=== PATIENT | female | born 1960 | race Caucasian/White ===

== ENCOUNTER 2016-10-21 14:29 | Emergency (ER) | payer OTHER, MEDICAID ==
[~2016-10-21] VITALS: Ht 160 cm; Wt 113.5 kg
[~2016-10-21 14:29] MED LIST: ASPIR 8181 MG PO; CELEBREX200 MG PO; CLINDAMYCIN HC300 MG PO; COLACE100 MG PO; CYMBALTA60 M1 PO; DETROL LA4 MG PO; DIOVAN80 MG PO; ENBREL50 MG/ML SC; FOLIC ACID1 MG PO; HORIZANT600 M1 PO; LAC PO; LEVOFLOXACIN500 M1 PO; LINZESS145 MC1 PO; METFORMIN HCL500 MG PO; METHOTREXATE2.5 M2 PO; OMEPRAZOLE20 M2 PO; PREDNISONE50 MG PO; SAVELLA50 M1 PO; SIMVASTATIN20 M1 PO; SPIRONOLACTONE25 MG PO
[2016-10-21 16:53] LABS: BASOPHIL % 1.9 % (0-2); PLATELET COUNT 281 x10^3mcL (130-400)
[2016-10-21 16:59] LABS: CHLORIDE SERUM 105 mmol/L (98-107); CREATININE SERUM 0.8 mg/dL (0.6-1.0); GFR1 > 60 mL/min; GLUCOSE SERUM 121 mg/dL (74-106); POTASSIUM SERUM 4.3 mmol/L (3.5-5.1); SODIUM SERUM 141 mmol/L (136-145)
[2016-10-21 17:02] LABS: RED CELL DISTRIBUTION WIDTH 17.8 % (11.5-14.5)
[2016-10-21 17:10] LABS: ALBUMIN 3.5 g/dL (3.4-5.0); ALKALINE PHOSPHATASE 98 U/L (46-116); ALT/SGPT 17 U/L (14-59); AST/SGOT 15 U/L (15-37); BILIRUBIN TOTAL 0.4 mg/dL (0.20-1.00); TOTAL PROTEIN, SERUM 7.4 g/dL (6.4-8.2)
[2016-10-21 17:15] LABS: UA SPECIFIC GRAVITY 1.015 (1.005-1.035); microscopic required? YES; urine erythrocyte NEGATIVE (NEGATIVE)
[2016-10-21 17:20] LABS: CK-MB < 0.5 ng/mL (0-3.6); CREATINE KINASE 85 U/L (26-192)
[2016-10-21 17:26] VITALS: BP 114/52
== END 2016-10-21 18:10 | disposition home or self-care (01) ==
LOC: ED 14:29
PROVIDERS: Emergency Medicine
DX: R53.1 Weakness (principal); R42 Dizziness and giddiness; E11.9 Type 2 diabetes mellitus without complications; I10 Essential (primary) hypertension; M06.9 Rheumatoid arthritis, unspecified; Z79.84 Long term (current) use of oral hypoglycemic drugs; Z79.1 Long term (current) use of non-steroidal anti-inflammatories (NSAID); Z79.899 Other long term (current) drug therapy
CPT/HCPCS: 82962; 83880; J7050; Q0092

== ENCOUNTER 2018-01-12 12:11 | Emergency (ER) | payer OTHER, MEDICAID ==
[~2018-01-12] VITALS: Ht 165.1 cm; Wt 118.8 kg
[2018-01-12 12:37] VITALS: Ht 165.1 cm; Wt 118.8 kg
[2018-01-12 13:27] LABS: BASOPHIL % 0.4 % (0-2); PLATELET COUNT 310 x10^3mcL (130-400); RED CELL DISTRIBUTION WIDTH 21.1 % (11.5-14.5)
[2018-01-12 13:47] LABS: CK-MB < 0.5 ng/mL (0-3.6); CREATINE KINASE 45 U/L (26-192)
[2018-01-12 14:04] LABS: ALBUMIN 3.2 g/dL (3.4-5.0); ALKALINE PHOSPHATASE 107 U/L (46-116); ALT/SGPT 18 U/L (14-59); AST/SGOT 18 U/L (15-37); BILIRUBIN TOTAL 0.32 mg/dL (0.20-1.00); CALCIUM 8.8 mg/dL (8.5-10.1); CARBON DIOXIDE 27.8 mmol/L (21-32); CHLORIDE SERUM 102 mmol/L (98-107); CREATININE SERUM 0.8 mg/dL (0.6-1.0); GFR1 > 60 mL/min; GLUCOSE SERUM 101 mg/dL (74-106); POTASSIUM SERUM 3.9 mmol/L (3.5-5.1); SODIUM SERUM 139 mmol/L (136-145); TOTAL PROTEIN, SERUM 7.1 g/dL (6.4-8.2)
[2018-01-12 14:51] VITALS: BP 150/66
== END 2018-01-12 14:51 | disposition home or self-care (01) ==
LOC: ED 12:11
PROVIDERS: Emergency Medicine
DX: R53.1 Weakness (principal); I10 Essential (primary) hypertension; E11.9 Type 2 diabetes mellitus without complications; N28.9 Disorder of kidney and ureter, unspecified; M06.9 Rheumatoid arthritis, unspecified; M54.9 Dorsalgia, unspecified
CPT/HCPCS: 36415; 83880; Q0092

== ENCOUNTER 2018-01-16 16:28 | Inpatient (IN) | payer OTHER, MEDICAID ==
[~2018-01-16] VITALS: Ht 162.6 cm; Wt 119.8 kg
[2018-01-16 18:39] LABS: BASOPHIL % 0.4 % (0-2); PLATELET COUNT 400 x10^3mcL (130-400)
[2018-01-16 18:41] LABS: CALCIUM 9.1 mg/dL (8.5-10.1); CARBON DIOXIDE 25.3 mmol/L (21-32); CHLORIDE SERUM 100 mmol/L (98-107); CREATININE SERUM 0.9 mg/dL (0.6-1.0); GFR1 > 60 mL/min; GLUCOSE SERUM 169 mg/dL (74-106); POTASSIUM SERUM 3.5 mmol/L (3.5-5.1); SODIUM SERUM 139 mmol/L (136-145)
[2018-01-16 18:45] LABS: ALBUMIN 4.2 g/dL (3.4-5.0); ALKALINE PHOSPHATASE 129 U/L (46-116); ALT/SGPT 18 U/L (14-59); AST/SGOT 38 U/L (15-37); BILIRUBIN TOTAL 0.6 mg/dL (0.20-1.00); LIPASE 103 IU/L (73-393)
[2018-01-16 18:47] LABS: TOTAL PROTEIN, SERUM 8.9 g/dL (6.4-8.2)
[2018-01-16 19:02] LABS: RED CELL DISTRIBUTION WIDTH 21.5 % (11.5-14.5)
[2018-01-16 22:47] VITALS: BP 127/77
[2018-01-16 22:57] VITALS: Ht 162.6 cm; Wt 119.8 kg
[2018-01-16 23:18] LABS: CHOLESTEROL/HDL RATIO 4.5; PHOSPHOROUS 4.4 mg/dL (2.5-4.9)
[2018-01-16 23:24] LABS: FREE T4 1.08 ng/dL (0.76-1.46); FREE THYROXINE INDEX 3.3 ug/dL (1.4-4.5); T4(THYROXINE) 10.5 ug/dL (4.7-13.3)
[2018-01-17 00:31] LABS: T3 TOTAL 1.46 ng/mL
[2018-01-17 06:28] VITALS: BP 101/44
[2018-01-17 07:45] LABS: PLATELET COUNT 285 x10^3mcL (130-400)
[2018-01-17 07:46] LABS: BASOPHIL % 0 % (0-2)
[2018-01-17 07:47] LABS: rbc morphology (normal/abnorm) ABNORMAL (NORMAL)
[2018-01-17 08:11] LABS: CARBON DIOXIDE 24.7 mmol/L (21-32); CHLORIDE SERUM 107 mmol/L (98-107); CREATININE SERUM 0.8 mg/dL (0.6-1.0); GFR1 > 60 mL/min; GLUCOSE SERUM 119 mg/dL (74-106); MAGNESIUM 1.6 mg/dL (1.8-2.4); PHOSPHOROUS 2.9 mg/dL (2.5-4.9); POTASSIUM SERUM 4.2 mmol/L (3.5-5.1); SODIUM SERUM 141 mmol/L (136-145); TRIGLYCERIDES 131 mg/dL (<150)
[2018-01-17 08:33] LABS: CHOLESTEROL 115 mg/dL (<200); CHOLESTEROL/HDL RATIO 3.8; HDL CHOLESTEROL 30 mg/dL (40-60)
[2018-01-17 15:31] VITALS: BP 95/54
[2018-01-17 17:29] VITALS: BP 106/36
[2018-01-17 18:33] LABS: UA SPECIFIC GRAVITY >=1.030 (1.005-1.035); microscopic required? YES; urine erythrocyte NEGATIVE (NEGATIVE)
[2018-01-17 18:40] LABS: AMPHETAMINE QUAL UR NONE DETECTED (See below)
[2018-01-17 19:03] VITALS: BP 118/45
[2018-01-17 21:20] VITALS: BP 106/36
[2018-01-18 05:11] VITALS: BP 111/43
[2018-01-18 07:47] LABS: BASOPHIL % 0.3 % (0-2); PLATELET COUNT 246 x10^3mcL (130-400)
[2018-01-18 07:48] LABS: RED CELL DISTRIBUTION WIDTH 21.2 % (11.5-14.5)
[2018-01-18 07:49] LABS: rbc morphology (normal/abnorm) ABNORMAL (NORMAL)
[2018-01-18 07:55] LABS: CARBON DIOXIDE 25.6 mmol/L (21-32); CHLORIDE SERUM 107 mmol/L (98-107); CREATININE SERUM 0.6 mg/dL (0.6-1.0); GFR1 > 60 mL/min; GLUCOSE SERUM 144 mg/dL (74-106); MAGNESIUM 1.7 mg/dL (1.8-2.4); PHOSPHOROUS 2.5 mg/dL (2.5-4.9); POTASSIUM SERUM 3.5 mmol/L (3.5-5.1); SODIUM SERUM 140 mmol/L (136-145)
[2018-01-18 09:50] VITALS: BP 116/51
[2018-01-18 15:23] VITALS: BP 130/46
[2018-01-18 18:26] VITALS: BP 114/43
[2018-01-18 20:59] VITALS: BP 132/59
[2018-01-19 05:33] VITALS: BP 113/45
[2018-01-19 07:23] LABS: BASOPHIL % 0.2 % (0-2); CALCIUM 7.8 mg/dL (8.5-10.1); CARBON DIOXIDE 27.9 mmol/L (21-32); CHLORIDE SERUM 108 mmol/L (98-107); CREATININE SERUM 0.6 mg/dL (0.6-1.0); GFR1 > 60 mL/min; GLUCOSE SERUM 123 mg/dL (74-106); MAGNESIUM 1.6 mg/dL (1.8-2.4); PHOSPHOROUS 3.2 mg/dL (2.5-4.9); PLATELET COUNT 257 x10^3mcL (130-400); POTASSIUM SERUM 3.4 mmol/L (3.5-5.1); SODIUM SERUM 142 mmol/L (136-145)
[2018-01-19 07:26] LABS: RED CELL DISTRIBUTION WIDTH 21.6 % (11.5-14.5)
[2018-01-19 07:27] LABS: rbc morphology (normal/abnorm) ABNORMAL (NORMAL)
[2018-01-19 10:19] VITALS: BP 133/56
[2018-01-19 12:44] VITALS: BP 125/55
[2018-01-19 17:31] VITALS: BP 127/52
[2018-01-19 20:42] VITALS: BP 118/51
[2018-01-20 05:27] VITALS: BP 102/50
[2018-01-20 06:09] LABS: PLATELET COUNT 280 x10^3mcL (130-400)
[2018-01-20 06:27] LABS: BASOPHIL % 0 % (0-2); RED CELL DISTRIBUTION WIDTH 21.3 % (11.5-14.5)
[2018-01-20 06:38] LABS: CALCIUM 8.3 mg/dL (8.5-10.1); CARBON DIOXIDE 25.7 mmol/L (21-32); CHLORIDE SERUM 106 mmol/L (98-107); CREATININE SERUM 0.8 mg/dL (0.6-1.0); GFR1 > 60 mL/min; GLUCOSE SERUM 111 mg/dL (74-106); MAGNESIUM 1.4 mg/dL (1.8-2.4); PHOSPHOROUS 2.1 mg/dL (2.5-4.9); POTASSIUM SERUM 3.9 mmol/L (3.5-5.1); SODIUM SERUM 138 mmol/L (136-145)
[2018-01-20 09:53] VITALS: BP 125/52
[2018-01-20] MEDS ORDERED: NOVAPLUS ZYVO2 MG/ML IV (13:59)
[2018-01-20 14:06] VITALS: BP 125/56
[2018-01-20] MEDS ORDERED: LIPI20 PO (14:45)
[2018-01-20 14:49] VITALS: BP 125/56
[2018-01-20 17:21] VITALS: BP 126/48
== END 2018-01-20 18:11 | disposition home health service (06) | DRG 357 ==
LOC: ED 16:28 → MU 21:30 → DU 21:30 → MU 22:20 → DU 22:49
PROVIDERS: Emergency Medicine; Internal Medicine
PROC: 0JBR0ZZ Excision of Left Foot Subcutaneous Tissue and Fascia, Open Approach (ICD-10-PCS; principal; 2018-01-17)
PROC: 0JBQ0ZZ Excision of Right Foot Subcutaneous Tissue and Fascia, Open Approach (ICD-10-PCS; 2018-01-17)
DX: K56.7 Ileus, unspecified (principal); L97.421 Non-pressure chronic ulcer of left heel and midfoot limited to breakdown of skin; Z68.42 Body mass index [BMI] 45.0-49.9, adult; L97.511 Non-pressure chronic ulcer of other part of right foot limited to breakdown of skin; E11.621 Type 2 diabetes mellitus with foot ulcer; E11.40 Type 2 diabetes mellitus with diabetic neuropathy, unspecified; K59.03 Drug induced constipation; T50.7X5A Adverse effect of analeptics and opioid receptor antagonists, initial encounter; G89.29 Other chronic pain; M54.5 Low back pain; M06.9 Rheumatoid arthritis, unspecified; D17.71 Benign lipomatous neoplasm of kidney; I10 Essential (primary) hypertension; D72.829 Elevated white blood cell count, unspecified; F32.9 Major depressive disorder, single episode, unspecified; E78.5 Hyperlipidemia, unspecified; Y92.018 Other place in single-family (private) house as the place of occurrence of the external cause; Z79.84 Long term (current) use of oral hypoglycemic drugs
CPT/HCPCS: 83880; 84439; 97110-GP; 97530-GP; 97535-GP; C9113; J1644; J1885; J1956; J2020; J2405; J2765; J3490; J7030; J7040; J8597; Q0092; Q9967

== ENCOUNTER 2018-08-23 18:01 | Emergency (ER) | payer OTHER, MEDICAID ==
[~2018-08-23] VITALS: Ht 162.6 cm; Wt 97.5 kg
[~2018-08-23 18:01] MED LIST changes: +LIPI20 PO; +NOVAPLUS ZYVO2 MG/ML IV
[2018-08-23 18:14] VITALS: Ht 162.6 cm; Wt 97.5 kg
[2018-08-23 22:59] LABS: BASOPHIL % 0 % (0-2); PLATELET COUNT 320 x10^3mcL (130-400); RED CELL DISTRIBUTION WIDTH 19.4 % (11.5-14.5)
[2018-08-23 23:19] LABS: CALCIUM 8.7 mg/dL (8.5-10.1); CARBON DIOXIDE 31.9 mmol/L (21-32); CHLORIDE SERUM 104 mmol/L (98-107); CREATININE SERUM 0.7 mg/dL (0.6-1.0); GFR1 > 60 mL/min; GLUCOSE SERUM 108 mg/dL (74-106); SODIUM SERUM 142 mmol/L (136-145)
[2018-08-23 23:32] LABS: ALBUMIN 3.5 g/dL (3.4-5.0); ALKALINE PHOSPHATASE 120 U/L (46-116); ALT/SGPT 20 U/L (14-59); AST/SGOT 13 U/L (15-37); BILIRUBIN TOTAL 0.2 mg/dL (0.20-1.00); FREE T4 0.85 ng/dL (0.76-1.46); TOTAL PROTEIN, SERUM 7.6 g/dL (6.4-8.2)
[2018-08-24 00:17] LABS: microscopic required? NO
[2018-08-24 00:22] LABS: urine erythrocyte NEGATIVE (NEGATIVE)
[2018-08-24 01:44] VITALS: BP 129/51
== END 2018-08-24 01:45 | disposition home or self-care (01) ==
LOC: ED 18:01
PROVIDERS: Emergency Medicine
DX: R68.83 Chills (without fever) (principal); R53.81 Other malaise; I10 Essential (primary) hypertension; E11.9 Type 2 diabetes mellitus without complications; G89.29 Other chronic pain; M54.9 Dorsalgia, unspecified
CPT/HCPCS: 36415; 83880; 84439; 87804; J7040